=== PATIENT | female | born 1930 | race Caucasian/White ===

== ENCOUNTER 2020-10-15 08:43 | Emergency (ER) | payer OTHER ==
[~2020-10-15] VITALS: Ht 170.2 cm; Wt 59.0 kg
[~2020-10-15 08:43] MED LIST: LEVOTHYROXINE0.05 MG PO
[2020-10-15] MEDS ORDERED: LEVOTHYROXINE75 MCG PO (08:51)
[2020-10-15] MEDS ORDERED: NORVASC5 MG PO (08:51)
[2020-10-15 09:35] VITALS: BP 144/58
[2020-10-15] MEDS ORDERED: AUGMENTIN 875-1 EACH PO (09:40)
== END 2020-10-15 10:12 | disposition home or self-care (01) ==
LOC: ER 08:43
DX: L03.011 Cellulitis of right finger (principal); Z79.899 Other long term (current) drug therapy; Z96.641 Presence of right artificial hip joint